=== PATIENT | female | born 1975 | race Native Hawaiian/Other Pacific Islander ===

== ENCOUNTER 2018-04-06 14:00 | Emergency (ER) | payer OTHER ==
[~2018-04-06] VITALS: Ht 162.6 cm; Wt 68.0 kg
[2018-04-06 15:15] VITALS: BP 111/65; TEMP 97.7
== END 2018-04-06 15:15 | disposition home or self-care (01) ==
LOC: ED 14:00
DX: H61.22 Impacted cerumen, left ear (principal)
CPT/HCPCS: 99283

== ENCOUNTER 2018-05-05 13:59 | Emergency (ER) | payer OTHER ==
[~2018-05-05] VITALS: Ht 162.6 cm; Wt 68.0 kg
[2018-05-05 14:57] LABS: PLATELET COUNT 260 K/uL (152-353)
[2018-05-05 15:01] LABS: POTASSIUM 3.8 mmol/L (3.6-5.2)
[2018-05-05 17:27] VITALS: BP 113/82; TEMP 98.1
== END 2018-05-05 17:39 | disposition home or self-care (01) ==
LOC: ED 13:59
PROVIDERS: Family Medicine
DX: K80.20 Calculus of gallbladder without cholecystitis without obstruction (principal); R31.9 Hematuria, unspecified
CPT/HCPCS: 80053; 81000; 85027; 87490; 87590; 96372; 99283; J1885

== ENCOUNTER 2018-11-02 23:53 | Emergency (ER) | payer OTHER ==
[~2018-11-02] VITALS: Ht 162.6 cm; Wt 81.2 kg
[2018-11-03 01:19] VITALS: BP 119/75; TEMP 98.2
== END 2018-11-03 01:20 | disposition home or self-care (01) ==
LOC: ED 23:53
DX: J45.901 Unspecified asthma with (acute) exacerbation (principal); R05 Cough
CPT/HCPCS: 94664; 96372; 99283; J2930

== ENCOUNTER 2018-11-11 02:33 | Emergency (ER) | payer OTHER ==
[~2018-11-11] VITALS: Ht 162.6 cm; Wt 77.1 kg
[2018-11-11] MEDS ORDERED: PERM5CRE9 EX (03:15)
[2018-11-11 03:20] VITALS: BP 122/87; TEMP 98.6
== END 2018-11-11 03:20 | disposition home or self-care (01) ==
LOC: ED 02:33
DX: B86 Scabies (principal)
CPT/HCPCS: 99282

== ENCOUNTER → 2018-11-13 18:05 | Outpatient (CLI) | payer OTHER ==
[~2018-11-13 18:05] MED LIST: PERM5CRE9 EX
== END | disposition home or self-care (01) ==
LOC: AMB 18:05
DX: J45.998 Other asthma (principal); R06.02 Shortness of breath

== ENCOUNTER → 2019-03-12 14:51 | Outpatient (CLI) | payer OTHER | END | disposition home or self-care (01) | LOC: AMB 14:51 | DX: R06.03 Acute respiratory distress (principal); J45.909 Unspecified asthma, uncomplicated ==

== ENCOUNTER 2019-05-01 08:48 | Emergency (ER) | payer OTHER ==
[~2019-05-01] VITALS: Ht 162.6 cm; Wt 72.6 kg
[2019-05-01 08:56] VITALS: TEMP 98.2
[2019-05-01 10:16] VITALS: BP 135/82
== END 2019-05-01 10:16 | disposition home or self-care (01) ==
LOC: ED 08:48
DX: G56.03 Carpal tunnel syndrome, bilateral upper limbs (principal)
CPT/HCPCS: 96372; 99283; J1885

== ENCOUNTER 2019-06-24 11:16 | Emergency (ER) | payer OTHER ==
[~2019-06-24] VITALS: Ht 162.6 cm; Wt 74.8 kg
[2019-06-24 11:26] VITALS: TEMP 98.1
[2019-06-24 13:00] VITALS: BP 110/69
== END 2019-06-24 13:00 | disposition home or self-care (01) ==
LOC: ED 11:16
DX: S43.401A Unspecified sprain of right shoulder joint, initial encounter (principal); S33.5XXA Sprain of ligaments of lumbar spine, initial encounter; W01.0XXA Fall on same level from slipping, tripping and stumbling without subsequent striking against object, initial encounter; Y92.511 Restaurant or cafe as the place of occurrence of the external cause
CPT/HCPCS: 96372; 99283; J1885

== ENCOUNTER 2019-08-02 18:40 | Emergency (ER) | payer OTHER ==
[~2019-08-02] VITALS: Ht 162.6 cm; Wt 82.6 kg
[2019-08-02 19:48] VITALS: BP 107/72; TEMP 98.2
== END 2019-08-02 19:48 | disposition home or self-care (01) ==
LOC: ED 18:40
DX: J06.9 Acute upper respiratory infection, unspecified (principal); F17.210 Nicotine dependence, cigarettes, uncomplicated
CPT/HCPCS: 87502; 87651; 99283

== ENCOUNTER 2019-11-12 18:52 | Emergency (ER) | payer OTHER ==
[~2019-11-12] VITALS: Ht 162.6 cm; Wt 85.3 kg
[2019-11-12 21:15] VITALS: BP 110/78; TEMP 98.2
== END 2019-11-12 21:15 | disposition home or self-care (01) ==
LOC: ED 18:52
DX: Z87.442 Personal history of urinary calculi (principal); N13.39 Other hydronephrosis; K80.80 Other cholelithiasis without obstruction
CPT/HCPCS: 81000; 99283

== ENCOUNTER 2021-01-13 10:21 | Emergency (ER) | payer OTHER ==
[~2021-01-13] VITALS: Ht 162.6 cm; Wt 77.1 kg
[2021-01-13 12:20] VITALS: BP 121/74; TEMP 97.6
== END 2021-01-13 12:20 | disposition home or self-care (01) ==
LOC: ED 10:21
DX: M77.8 Other enthesopathies, not elsewhere classified (principal)
CPT/HCPCS: 96372; 99282; 99283; J1885

== ENCOUNTER 2021-03-10 17:16 | Emergency (ER) | payer OTHER ==
[~2021-03-10] VITALS: Ht 162.6 cm; Wt 81.6 kg
[2021-03-10 18:15] VITALS: BP 128/84; TEMP 98.5
== END 2021-03-10 18:15 | disposition home or self-care (01) ==
LOC: ED 17:16
DX: S00.432A Contusion of left ear, initial encounter (principal); W50.0XXA Accidental hit or strike by another person, initial encounter; Y92.89 Other specified places as the place of occurrence of the external cause
CPT/HCPCS: 99282

== ENCOUNTER 2021-05-05 11:09 | Emergency (ER) | payer OTHER ==
[~2021-05-05] VITALS: Ht 162.6 cm; Wt 77.1 kg
[2021-05-05 13:20] VITALS: BP 115/54; TEMP 97.6
== END 2021-05-05 13:20 | disposition home or self-care (01) ==
LOC: ED 11:09
DX: S83.8X1A Sprain of other specified parts of right knee, initial encounter (principal); R30.0 Dysuria; Y04.0XXA Assault by unarmed brawl or fight, initial encounter; Y92.89 Other specified places as the place of occurrence of the external cause
CPT/HCPCS: 81000; 96372; 99283; J1885

== ENCOUNTER 2021-05-23 14:13 | Emergency (ER) | payer OTHER ==
[~2021-05-23] VITALS: Ht 162.6 cm; Wt 77.1 kg
[2021-05-23 14:30] VITALS: BP 11/73; TEMP 97.2
[2021-05-23 16:36] LABS: POTASSIUM 3.9 mmol/L (3.6-5.2)
== END 2021-05-23 18:01 | disposition home or self-care (01) ==
LOC: ED 14:13
PROVIDERS: Family Medicine
DX: M25.561 Pain in right knee (principal); M79.661 Pain in right lower leg; R79.89 Other specified abnormal findings of blood chemistry; Y04.0XXA Assault by unarmed brawl or fight, initial encounter; Y92.89 Other specified places as the place of occurrence of the external cause; Z53.29 Procedure and treatment not carried out because of patient's decision for other reasons
CPT/HCPCS: 80048; 84550; 85379; 96372; 99283; J1885; J2550

== ENCOUNTER 2021-05-25 14:34 | Outpatient (CLI) | payer OTHER | END 2021-05-25 21:06 | disposition home or self-care (01) | LOC: US 14:34 | PROVIDERS: ATTEND Nurse Practitioner Family | DX: R60.0 Localized edema (principal); M25.561 Pain in right knee ==

== ENCOUNTER 2021-05-29 15:01 | Outpatient (CLI) | payer OTHER | END 2021-05-29 20:37 | disposition home or self-care (01) | LOC: RAD 15:01 | PROVIDERS: ATTEND Nurse Practitioner Family | DX: R60.0 Localized edema (principal); M25.561 Pain in right knee ==

== ENCOUNTER 2021-06-28 07:56 | Emergency (ER) | payer OTHER ==
[~2021-06-28] VITALS: Ht 162.6 cm; Wt 83.0 kg
[2021-06-28 08:00] VITALS: BP 116/62; TEMP 98.3
== END 2021-06-28 09:15 | disposition home or self-care (01) ==
LOC: ED 07:56
DX: N39.0 Urinary tract infection, site not specified (principal)
CPT/HCPCS: 81000; 81025; 96372; 99283; J0696

== ENCOUNTER 2021-07-09 21:32 | Emergency (ER) | payer OTHER ==
[~2021-07-09] VITALS: Ht 162.6 cm; Wt 83.9 kg
[2021-07-09 23:01] VITALS: BP 114/60; TEMP 98.4
== END 2021-07-09 23:01 | disposition home or self-care (01) ==
LOC: ED 21:32
DX: N39.0 Urinary tract infection, site not specified (principal); R30.0 Dysuria; B37.3 Candidiasis of vulva and vagina
CPT/HCPCS: 81000; 87086; 87088; 96372; 99283; J0696

== ENCOUNTER 2022-02-18 18:40 | Emergency (ER) | payer OTHER ==
[~2022-02-18] VITALS: Ht 162.6 cm; Wt 83.9 kg
[2022-02-18 18:50] VITALS: BP 108/53; TEMP 97.1
[2022-02-18 20:35] LABS: PLATELET COUNT 278 K/uL (152-353)
[2022-02-18 20:43] LABS: POTASSIUM 3.6 mmol/L (3.6-5.2)
== END 2022-02-18 22:58 | disposition home or self-care (01) ==
LOC: ED 18:40
PROVIDERS: Family Medicine
DX: R14.0 Abdominal distension (gaseous) (principal); F32.89 Other specified depressive episodes; N92.5 Other specified irregular menstruation
CPT/HCPCS: 36415; 80053; 80307; 81000; 81025; 83880; 85027; 87086; 87088; 99283

== ENCOUNTER 2022-03-14 17:15 | Emergency (ER) | payer OTHER ==
[~2022-03-14] VITALS: Ht 162.6 cm; Wt 82.1 kg
[2022-03-14 18:55] VITALS: BP 109/66; TEMP 99.1
== END 2022-03-14 18:55 | disposition home or self-care (01) ==
LOC: ED 17:15
DX: L85.8 Other specified epidermal thickening (principal); J45.901 Unspecified asthma with (acute) exacerbation; L25.9 Unspecified contact dermatitis, unspecified cause
CPT/HCPCS: 90471; 90472; 90715; 99283

== ENCOUNTER 2022-05-03 13:20 | Emergency (ER) | payer OTHER ==
[~2022-05-03] VITALS: Ht 162.6 cm; Wt 80.7 kg
[2022-05-03 13:23] VITALS: BP 104/73; TEMP 98.3
[2022-05-03 14:34] LABS: POTASSIUM 2.6 mmol/L (3.6-5.2)
[2022-05-03 14:47] LABS: PLATELET COUNT 224 K/uL (152-353)
== END 2022-05-03 15:02 | disposition home or self-care (01) ==
LOC: ED 13:20
PROVIDERS: Emergency Medicine Emergency Medical Services
PROC: 2W3DX1Z Immobilization of Left Lower Arm using Splint (ICD-10-PCS; principal; 2022-05-03)
DX: G56.02 Carpal tunnel syndrome, left upper limb (principal); E87.6 Hypokalemia
CPT/HCPCS: 80048; 80307; 84484; 85027; 93005; 96360; 96374; 96375; 99283; 99284; J1885